=== PATIENT | male | born 1960 | race African-American/Black ===

== ENCOUNTER 2019-02-14 22:38 | Emergency (ER) | payer OTHER ==
[~2019-02-14] VITALS: Ht 182.9 cm; Wt 97.6 kg
[2019-02-15] MEDS ORDERED: KETOROLAC 60MG/2ML VIAL IM ONE (00:45)
[2019-02-15] MEDS ORDERED: DEXAMETHASONE 10 MG/ML VIAL IM ONE (00:45)
[2019-02-15 02:35] VITALS: BP 124/79
== END 2019-02-15 03:00 | disposition home or self-care (01) ==
LOC: ER 22:38
DX: M54.32 Sciatica, left side (principal); J06.9 Acute upper respiratory infection, unspecified; I10 Essential (primary) hypertension
CPT/HCPCS: 71045; 96372; 99283; J1100; J1885; Z7610

== ENCOUNTER 2019-02-19 22:54 | Emergency (ER) | payer OTHER ==
[~2019-02-19] VITALS: Ht 182.9 cm; Wt 97.0 kg
[2019-02-20] MEDS ORDERED: KETOROLAC 30MG/ML VIAL IM ONE (00:45)
[2019-02-20] MEDS ORDERED: DEXAMETHASONE 10 MG/ML VIAL IM ONE (00:45)
[2019-02-20 03:40] LABS: CLARITY URINE CLEAR (CLEAR); COLOR URINE YELLOW (YELLOW); KETONES URINE NEGATIVE (NEGATIVE); LEUKOCYTE ESTERASE URINE NEGATIVE (NEGATIVE); NITRITE URINE NEGATIVE (NEGATIVE); OCCULT BLOOD URINE NEGATIVE (NEGATIVE); PH URINE 5.5 (4.5-8.0); PROTEIN URINE NEGATIVE (NEGATIVE); SPECIFIC GRAVITY URINE 1.015 (1.005-1.030); UROBILINOGEN URINE 0.2 E.U./dL (0.2-1.0)
[2019-02-20 06:11] VITALS: BP 153/94
== END 2019-02-20 06:14 | disposition home or self-care (01) ==
LOC: ER 22:54
DX: M54.42 Lumbago with sciatica, left side (principal); K59.00 Constipation, unspecified
CPT/HCPCS: 74018; 81003; 96372; 99284; J1100; J1885

== ENCOUNTER 2020-01-31 21:22 | Emergency (ER) | payer OTHER ==
[~2020-01-31] VITALS: Ht 182.9 cm; Wt 104.0 kg
[2020-01-31 22:19] VITALS: BP 143/103
== END 2020-01-31 23:35 | disposition left against medical advice (07) ==
LOC: ER 21:29
DX: J45.901 Unspecified asthma with (acute) exacerbation (principal); J41.0 Simple chronic bronchitis; F17.210 Nicotine dependence, cigarettes, uncomplicated; R03.0 Elevated blood-pressure reading, without diagnosis of hypertension
CPT/HCPCS: 93005; 99283

== ENCOUNTER 2022-10-31 21:59 | Emergency (ER) | payer MEDICAID, OTHER ==
[~2022-10-31] VITALS: Ht 182.9 cm; Wt 98.0 kg
[2022-10-31 22:41] VITALS: BP 134/99
== END 2022-11-01 08:37 | disposition left against medical advice (07) ==
LOC: ER 22:09
DX: Z53.21 Procedure and treatment not carried out due to patient leaving prior to being seen by health care provider (principal); I49.9 Cardiac arrhythmia, unspecified
CPT/HCPCS: 93005; 99281